=== PATIENT | male | born 1995 | race Two or more races ===

== ENCOUNTER 2025-07-03 15:52 | Emergency (ER) | payer MEDICAID, SELFPAY ==
[2025-07-03 15:54] VITALS: BMI 25.2
--- NOTE | 2025-07-03 16:22 | PD.EDRME ---
Rapid Medical Screening Exam RME Arrival date/time: 07/03/25 15:52 30-year-old male with no known medical history presents to the emergency room with a laceration to his left hand after accidentally cutting it with a skill saw at work 1 hour ago I have greeted and performed a focused initial assessment of this patient. A comprehensive ED assessment and evaluation of the patient, analysis of all test results, and completion of the medical decision making process will be conducted by additional ED providers. Chief Complaint: Wound/Laceration Time Seen by Provider: 07/03/25 16:12 Vital signs reviewed by provider: Yes Exam: 2 cm laceration to the left 3rd and 4th digit Clinical Impression: Laceration
[2025-07-03] MEDS: HYDROcodone/APAP 5/325 TABLET 1 TAB PO (16:35)
[2025-07-03 16:41] VITALS: BP 134/89; PULSE 75; RESP 18; TEMP 36.5; O2SAT 98
--- NOTE | 2025-07-03 17:06 | EDNOTE_ITS ---
ED Wound/Laceration-RME/HPI General Chief Complaint: Wound/Laceration Stated Complaint: LAC TO L HAND S/P ACCIDENT WITH SKILL SAW Time Seen by Provider: 07/03/25 16:12 Arrival date/time: 07/03/25 15:52 30-year-old male patient with no past medical history, came in for evaluation regarding left middle finger skin avulsion to the distal phalanx palmar aspect. Incident happened about 1 hour prior to ER visit while working with a skill saw. Patient also sustained abrasion to the left fourth finger. Able to bend and extend the fingers without any limitation. Tetanus vaccination is unknown. Bleeding was noted on my initial evaluation. RME / HPI RME / HPI narrative: 07/03/25 15:52 30-year-old male with no known medical history presents to the emergency room with a laceration to his left hand after accidentally cutting it with a skill saw at work 1 hour ago I have greeted and performed a focused initial assessment of this patient. A comprehensive ED assessment and evaluation of the patient, analysis of all test results, and completion of the medical decision making process will be conducted by additional ED providers. Exam: 2 cm laceration to the left 3rd and 4th digit Impression: Laceration Related Data Previous Rx's ?Medication ?Instructions ?Recorded cephalexin 500 mg capsule 500 mg PO TID 7 days #21 cap s 07/03/25 ibuprofen 800 mg tablet 800 mg PO Q8H PRN pain #30 t abs 07/03/25 Allergies Allergy/AdvReac Type Severity Reaction Status Date / Time No Known Allergies Allergy Verified 07/03/25 15:56 Review of Systems Review of Systems Narrative Review of Systems: Review of system reviewed and within normal limits except mentioned in HPI ED Exam Narrative Physical exam: VITAL SIGNS: Reviewed. GENERAL APPEARANCE: Alert and interactive, follows commands, no acute distress, HEAD AND FACE: Non-traumatic. ENT: PERRL, pink conjunctivitis, eyelid no trauma, Mucous membrane moist. NECK: Supple, nontender, no nuchal rigidity. CHEST: No tenderness, no crepitus, no paradoxical movement, no retractions. LUNGS: Clear, well ventilated, symmetric, no rales, no wheezing, no ronchi, no stridor, good breath sounds bilaterally. HEART: Regular rate, regular rhythm, no murmur, no gallops. ABDOMEN: Soft, positive bowel sounds, nondistended, no guarding, nontender, no rebound, no masses, RECTAL: Deferred. GENITAL: Deferred. NEUROLOGICAL: Gross motor function intact sensory function intact, Appropriate for age. MUSCULOSKELETAL: low back nontender, full range of motion. EXTREMITIES: Left third finger skin avulsion distal phalanx palmar aspect, full range of motion. Abrasion noted on the fourth finger palmar aspect full range of motion of the finger SKIN: Color pink, dry, no rash, LYMPHATICS: Deferred. Course Quality Measures none Orders Category Date Time Status HYDROcodone*/APAP 5/325 [Frakes 5/325] Med 07/03/25 16:21 Discontinued 1 tab PO X1 ONE TET,DIP/PERT AC (Adult)-Tdap [Boostrix Adult (Tdap) Med 07/03/25 17:04 Discontinued Vacc] 0.5 ml IMI .ONCE ONE cephALEXin [Keflex] Med 07/03/25 17:04 Discontinued 500 mg PO X1 ONE Vital Signs Vital signs: Vital Signs Temperature 97.7 F 07/03/25 16:41 Pulse Rate 75 07/03/25 16:41 Respiratory Rate 18 07/03/25 16:41 Blood Pressure 134/89 H 07/03/25 16:41 Pulse Oximetry (%) 98 07/03/25 16:41 Oxygen Delivery Method Room Air 07/03/25 16:41 Wound / Laceration MDM Narrative MDM Narrative:: 30-year-old male patient with no past medical history, came in for evaluation regarding left middle finger skin avulsion to the distal phalanx palmar aspect. Incident happened about 1 hour prior to ER visit while working with a skill saw. Patient also sustained abrasion to the left fourth finger. Able to bend and extend the fingers without any limitation. Tetanus vaccination is unknown. Bleeding was noted on my initial evaluation. Wound cleansed with NS, and Surgicel applied. There is no way I can put stitches on this patient, the skin is completely avulsed. There is no bone exposure and will heal by secondary intention I applied Surgicel, and there is no active bleeding noted able to bend and extend the fingers without any limitation imaging is not needed. Patient was given Keflex, and Frakes. Was also given Boostrix. Stable discharge home Patient data External records reviewed:: None Clinical information provided by:: patient and family Social determinants that could affect healthcare access:: none Patient has the following chronic illnesses:: None How is presenting disease/condition affected by chronic disease/condition?: no chronic disease Evaluation data The following diagnostics were reviewed and interpreted by me:: other (specify) (None) Lab and/or radiology exams considered but not ordered:: None Interpretation Summary: None Medications / Prescriptions Medications or Prescriptions considered but not ordered:: None Medication administrations:: Medication Administration History Discontinued Medications Hydrocodone Bitart/Acetaminophen (Hydrocodone/Apap 5/325 Tablet) 1 tab PO X1 ONE Stop: 07/03/25 16:22 Last Admin: 07/03/25 16:35 Dose: 1 tab Documented By: Cephalexin HCl (Cephalexin 250 Mg Capsule) 500 mg PO X1 ONE Stop: 07/03/25 17:05 Diphtheria/Tetanus/Acell Pertussis (Diphth,Pertuss(Acell),Tet Vac 0.5 Ml Syr- Adult) 0.5 ml IMi .ONCE ONE Stop: 07/03/25 17:05 Keflex, Boostrix, Frakes Consultations Consultation(s) initiated? (list below): No Diagnosis Wound Differential Diagnosis: abscess and avulsion of skin Most likely diagnosis given after review of the tests above:: Finger skin avulsion, Admission Indicated Admission indicated?: not indicated Admission Request Was there a request for admission?: No Disposition Plan Disposition Plan: Discharge Discharge Attestation Discharge Attestation: The patient and all family members were given an opportunity to ask questions and understood the discharge instructions. Discharge instructions specifically effects, indications for sooner follow up or return to the emergency department, and the expected course of current diagnosis. Patient condition: Stable Discharge Plan Plan Patient Disposition: HOME (Self Care) Discharge Disposition comment: Stable Prescriptions/Referrals Prescriptions/Med Rec: New cephalexin 500 mg capsule 500 mg PO TID 7 Days Qty: 21 0RF ibuprofen 800 mg tablet 800 mg PO Q8H PRN (Reason: pain) Qty: 30 0RF Problem List Clinical Impression: Avulsion of skin of finger Patient/Caregiver Discharge Instructions Discharge Activity: activity as tolerated Education Materials: ED Skin Avulsion Additional Instructions: Thank you for the opportunity for serving you today. You are stable for discharged . You are advised to: Follow-up with your PCP in 1 to 2 days Return to ED for worsening of symptoms Increase oral fluids Take medication as prescribed Change the dressing in 2 days and then daily as needed apply Neosporin also. A new skin will slowly grow probably in the next 3 to 4 weeks Print Language: Moroccan Stand Alone Forms: Mary Ellen Award Info., Patient Portal Info Letter PA/WIND ENERGY MECHANIC Supervising Physician PA/WIND ENERGY MECHANIC Supervising Physician: MD Scotty
[2025-07-03] MEDS: DIPHTH,PERTUSS(ACELL),TET VAC 0.5 ML SYR- ADULT IMi (17:37)
== END 2025-07-03 18:23 | disposition home or self-care (01) ==
LOC: SERX 18:15
PROVIDERS: Emergency Provider Emergency Medicine
DX: S61.213A Laceration without foreign body of left middle finger without damage to nail, initial encounter (principal); W27.0XXA Contact with workbench tool, initial encounter; Y93.89 Activity, other specified; Z23 Encounter for immunization
CPT/HCPCS: 90471; 90715; 99282; A9270

== ENCOUNTER 2025-07-06 08:15 | Emergency (ER) | payer MEDICAID, SELFPAY ==
[2025-07-06 08:28] VITALS: BP 126/81; PULSE 75; RESP 17; TEMP 36.6; O2SAT 100; BMI 26.2
--- NOTE | 2025-07-06 09:09 | EDNOTE_ITS ---
ED Wound/Laceration-RME/HPI General Chief Complaint: Wound Recheck / Suture Removal Stated Complaint: CHECK L) 3RD/4TH FINGER WOUNDS Time Seen by Provider: 07/06/25 08:39 Source: patient Arrival date/time: 07/06/25 08:15 30-year-old male with no known medical history presents to the emergency room for a encounter for a wound recheck of his laceration in his left hand 3rd and 4th digits Mode of arrival: ambulatory Limitations: no limitations Related Data Previous Rx's ?Medication ?Instructions ?Recorded cephalexin 500 mg capsule 500 mg PO TID 7 days #21 cap s 07/03/25 ibuprofen 800 mg tablet 800 mg PO Q8H PRN pain #30 t abs 07/03/25 Allergies Allergy/AdvReac Type Severity Reaction Status Date / Time No Known Allergies Allergy Verified 07/06/25 08:22 Review of Systems Review of Systems Systems Reviewed: All systems reviewed, normal except as documented Constitutional Constitutional: Reports system reviewed and no additional complaints, except as documented, Denies fatigue, Denies fever(s), Denies headache(s) and Denies weakness Eyes Eyes: Reports system reviewed and no additional complaints, except as documented, Denies blurry vision and Denies change in vision ENT Ears, Nose, Mouth, and Throat: Reports system reviewed and no additional complaints, except as documented, Denies otalgia, Denies headache(s), Denies nasal congestion, Denies throat swelling and Denies vertigo Cardiovascular Cardiovascular: Reports system reviewed and no additional complaints, except as documented, Denies chest pain, Denies dyspnea and Denies dyspnea on exertion Respiratory Respiratory: Reports system reviewed and no additional complaints, except as documented, Denies chest congestion, Denies cough, Denies dyspnea, Denies dyspnea on exertion and Denies wheezing Gastrointestinal Gastrointestinal: Reports system reviewed and no additional complaints, except as documented, Denies abdominal pain, Denies cramping, Denies nausea and Denies vomiting Genitourinary Genitourinary: Reports system reviewed and no additional complaints, except as documented, Denies dysuria and Denies hematuria Musculoskeletal Musculoskeletal: Reports system reviewed and no additional complaints, except as documented and Denies back pain Integumentary/Breasts Skin/Breast: Reports system reviewed and no additional complaints, except as documented and Reports wounds Neurologic Neurologic: Reports system reviewed and no additional complaints, except as documented, Denies confusion, Denies headache(s), Denies lack of coordination, Denies vertigo and Denies weakness Psychiatric Psychiatric: Reports system reviewed and no additional complaints, except as documented, Denies anxiety, Denies confusion, Denies depression, Denies paranoia, Denies suicidal ideation and Denies tactile hallucinations Endocrine Endocrine: Reports system reviewed and no additional complaints, except as documented and Denies fatigue Hematologic/Lymphatic Hematologic/Lymphatic: Reports system reviewed and no additional complaints, except as documented and Denies lymphadenopathy Allergic/Immunologic Allergic/Immunologic: Reports system reviewed and no additional complaints, except as documented, Denies throat swelling, Denies urticaria and Denies wheezing Past Medical History Social History SMOKING STATUS: Never smoker ED Exam General Limitations: Present no limitations General appearance: Present alert and in no apparent distress Head Head exam: Present atraumatic Eye Eye exam: Present normal appearance, PERRL and EOMI ENT ENT exam: Present normal exam, normal oropharynx and mucous membranes moist Neck Neck exam: Present normal inspection, full ROM and trachea midline Chest Chest inspection: Present normal inspection and symmetric chest wall rise Respiratory Respiratory exam: Present normal lung sounds bilaterally Cardiovascular Cardiovascular exam: Present regular rate, normal rhythm and normal heart sounds Abdominal Exam Abdominal exam: Present soft and normal bowel sounds Extremities Exam Extremities exam: Present normal inspection and full ROM Expanded Upper Extremity Exam Shoulder exam: Present normal inspection Arm exam: Present normal inspection Elbow exam: Present normal inspection Forearm/Wrist exam: Present normal inspection Hand exam: Present normal inspection Hand L/R front image: 2 1. avulsion (Avulsion of the third digit. There is no erythema there is no warmth to the touch there is no tenderness there are no signs of infection) 2. avulsion (There is no tenderness no warmth to the touch no drainage) Back Exam Back exam: Present normal inspection and full ROM Neurological Exam Neurological exam: Present alert, oriented X3 and CN II-XII intact Psychiatric Psychiatric exam: Present normal affect and normal mood Skin Skin exam: Present warm, dry, intact and normal color Course Quality Measures none Orders Category Date Time Status Wound Care X1 Care 07/06/25 08:53 Active Vital Signs Vital signs: Vital Signs Temperature 97.8 F 07/06/25 08:28 Pulse Rate 75 07/06/25 08:28 Respiratory Rate 17 07/06/25 08:28 Blood Pressure 126/81 07/06/25 08:28 Pulse Oximetry (%) 100 07/06/25 08:28 Oxygen Delivery Method Room Air 07/06/25 08:28 Wound / Laceration MDM Narrative MDM Narrative:: 30-year-old male with no known medical history presents to the emergency room for a encounter for a wound recheck of his laceration in his left hand 3rd and 4th digits Patient is hemodynamically stable and in no apparent distress Physical examination shows an avulsion in the right hand third digit. The wound was evaluated and there is no warmth to the touch there is no redness there is no streaking there is no tenderness and the wound appears to be healing appropriately. The dressing was cleaned, a new Surgicel and gauze was applied and the injury was wrapped. The fourth digit also has a small avulsion it was cleaned irrigated and new dressing was changed and applied Patient was discharged and educated to follow-up with primary care provider in the next 24 to 48 hours and return to the emergency room for any evidence of worsening signs or symptoms Patient data External records reviewed:: [facility] previous records Clinical information provided by:: patient Social determinants that could affect healthcare access:: none Patient has the following chronic illnesses:: No chronic illness How is presenting disease/condition affected by chronic disease/condition?: no chronic disease Evaluation data The following diagnostics were reviewed and interpreted by me:: lab results and radiology exam(s) Lab and/or radiology exams considered but not ordered:: Labs and radiology exams considered and ordered Interpretation Summary: N/A Medications / Prescriptions Medications or Prescriptions considered but not ordered:: N/A Medication administrations:: N/A Consultations Consultation(s) initiated? (list below): No Diagnosis Wound Differential Diagnosis: laceration, abscess, abrasion, avulsion of skin and other (Encounter for recheck of laceration wound) Most likely diagnosis given after review of the tests above:: Encounter for recheck of laceration wound Admission Indicated Admission indicated?: not indicated Admission Request Was there a request for admission?: No Disposition Plan Disposition Plan: Discharge Discharge Attestation Discharge Attestation: The patient and all family members were given an opportunity to ask questions and understood the discharge instructions. Discharge instructions specifically effects, indications for sooner follow up or return to the emergency department, and the expected course of current diagnosis. Patient condition: Stable Discharge Plan Plan Patient Disposition: HOME (Self Care) Discharge Disposition comment: Stable Prescriptions/Referrals Prescriptions/Med Rec: No Action cephalexin 500 mg capsule 500 mg PO TID 7 Days Qty: 21 0RF ibuprofen 800 mg tablet 800 mg PO Q8H PRN (Reason: pain) Qty: 30 0RF Problem List Clinical Impression: Avulsion of skin of finger, Encounter for re-check of laceration wound Patient/Caregiver Discharge Instructions Education Materials: ED Skin Avulsion Additional Instructions: Por favor, comun?quese con [place] m?dico de cabecera en las pr?ximas 24 a 48 horas. [place] herida parece estar cicatrizando correctamente. Se le cambi? el ap?sito. Si presenta alg?n signo o s?ntoma de empeoramiento, acuda a la naeem de urgencias de inmediato. Print Language: Romansh Stand Alone Forms: Mary Ellen Award Info., Work/School Release, Patient Portal Info Letter
== END 2025-07-06 09:17 | disposition home or self-care (01) ==
LOC: SERX 09:16
PROVIDERS: Emergency Provider Nurse Practitioner Family
DX: S61.212D Laceration without foreign body of right middle finger without damage to nail, subsequent encounter (principal); S61.214D Laceration without foreign body of right ring finger without damage to nail, subsequent encounter; X58.XXXD Exposure to other specified factors, subsequent encounter
CPT/HCPCS: 99281